=== PATIENT | male | born 2000 ===

== ENCOUNTER 2021-11-06 12:39 | Emergency (ER) | payer SELFPAY ==
[2021-11-06] MEDS ORDERED: TETANUS,DIPH,PERTUSS(ACELL) VACCINE 0.5 ML SYRINGE IM ONE (13:29)
[2021-11-06] MEDS ORDERED: LIDOCAINE (1%) 10 MG/1 ML VIAL 20 ML MDV INFILTRATI ONE (13:29)
[2021-11-06] MEDS ORDERED: SODIUM CHLORIDE 0.9% IRR 500 ML BOTTLE IR ONE (13:29)
[2021-11-06] MEDS ORDERED: NEOMY 3.5 MG/BACIT 400 UNITS/POLY B 5000 UNITS/GM OINT PACKET TP ONE (13:29)
--- NOTE | 2021-11-06 13:29 | Event Note ---
ED Screening Note ED Screening Note: pt comes to ER with lacs to finger 1-4 of l hand he states he was cutting garlic he has large lacs to 4 fingers he dunked his hand in flour to stop bleeding so wound visualization limited in triage chair he also put 2 large rubber bands on his arm above elbow as a tourniquet to stop the bleeding Linda removed the rubber bands arm dusky but over a few minutes started to pink up radial and ulnar pulses intact Rin charge nurse aware of need for bed Discussed with Dr Luz This initial assessment/diagnostic orders/clinical plan/treatment(s) is/are subject to change based on patients health status, clinical progression and re- assessment by fellow clinical providers in the ED. Further treatment and workup at subsequent clinical providers discretion. Patient/guardian urged not to elope from the ED as their condition may be serious if not clinically assessed and managed. Initial orders include: xr tdap ancef wound care
[2021-11-06] MEDS ORDERED: HYDROcodone/ACETAMINOPHEN 5-325 MG TAB PO ONE (14:00)
--- NOTE | 2021-11-06 14:14 | XRay Report ---
LEFT HAND 3 VIEW(S) INDICATION / CLINICAL INFORMATION: lac to finger 1-4 ro fx COMPARISON: None available. FINDINGS: BONES / JOINT(S): No acute fracture or subluxation. No significant arthritis. SOFT TISSUES: Soft tissue irregularity/lacerations of the third through fifth digits. ADDITIONAL FINDINGS: None. Signer Name: Lobo Ballard MD Signed: 11/06/2021 2:10 PM Workstation Name: [id number]
--- NOTE | 2021-11-06 15:29 | Emergency Department Report ---
Upper Extremity - HPI Chief Complaint: Extremity Injury, Upper Stated Complaint: MANGLED HAND Time Seen by Provider: 11/06/21 13:29 Upper Extremity: Left Middle Finger, Left Ring Finger Occurred When: Today Mechanism: Other (laceratin ) Severity: moderate Symptoms: Yes Pain with Movement, Yes Laceration or Abrasion, No Deformity, No Limited Range of Movement, No Numbness, No Weakness, No Swelling, No Bruising/Ecchymosis Other History: pt comes to ER with lacs to finger 1-4 of left hand. He states he was cutting garlic. he has large lacs to 4 fingers. he dunked his hand in flour to stop bleeding. Wound visualization limited in triage chair. he also put 2 large rubber bands on his arm above elbow as a tourniquet to stop the bleeding. Linda removed the rubber bands. arm dusky but over a few minutes started to pink up. radial and ulnar pulses intact. Patient is right hand dominant ED Review of Systems ROS: Stated complaint: MANGLED HAND Other details as noted in HPI Comment: All other systems reviewed and negative Respiratory: denies: cough, shortness of breath, wheezing Cardiovascular: denies: chest pain, palpitations Skin: other (Laceration left 4th and 3rd finger ) Neurological: denies: headache, weakness, paresthesias Psychiatric: denies: anxiety, depression Hematological/Lymphatic: denies: easy bleeding, easy bruising ED Past Medical Hx - Medications Home Medications: Home Medications Medication Instructions Recorded Confirmed Last Taken Type Ibuprofen [Motrin] 600 mg PO Q8H PRN #30 tablet 11/06/21 Unknown Rx Upper Extremity Exam - Exam General: Vital signs noted. No distress. Alert and acting appropriately. Head and Torso: No HEENT Abnormality, No Neck Tenderness, No Chest/Lungs Abnormality, No Abdominal Tenderness, No Back Tenderness Shoulder Exam: Yes Normal Range of Motion in Shoulder, No Shoulder Tenderness, No Clavicle Tenderness, No Shoulder Deformity, No AC Joint Tenderness Arm Exam: No Arm/Humerus Tenderness, No Arm Deformity Elbow: Yes Normal Range of Motion in Elbow, No Elbow Tenderness, No Elbow Deform ity Forearm: No Forearm Tenderness, No Forearm Deformity, No Pain with Pronation, No Pain with Supination Wrist: Yes Normal ROM in Wrist, No Wrist Tenderness, No Wrist Deformity, No Snuffbox Tenderness, No Pain with Axial Thumb Compression Hand: Yes Digit Tenderness (distal aspect of left 3rd and 4th finger on plamer surface ), Yes Normal ROM in Digit(s), No Hand Tenderness, No Hand Deformity, No Digit(s) Deformity, No Tendon Dysfunction CMS Exam: Yes Broken Skin (Approximately 2 cm x 1 cm superficial avulsion type laceration noted to the distal left third finger, and a 1 cm x 1 cm superficial skin avulsion laceration noted to the left fourth finger. This appears to be mainly soft tissue involvement. No bony exposure or bony injury noted. Bleeding controlled with pressure. No nailbed or nail involvement.), Yes Normal Distal Pulses, Yes Normal Capillary Refill, Yes Normal Distal Sensation ED Course Vital Signs 11/06/21 13:27 Temperature 98.3 F Pulse Rate 114 H Respiratory 16 Rate Blood Pressure 140/84 O2 Sat by Pulse 98 Oximetry - Nerve Block Consent Obtained: verbal consent Time Out Performed: No Local Anesthetic Used: Lidocaine 1% Amount of anesthesia used: 6 Side: left Nerve Blocks: digital Procedure Successful: Yes Complications: none Patient Tolerated Procedure: well, no complications ED Medical Decision Making - Radiology Data Radiology results: report reviewed Patient: MERLENE HOLLINGSWORTH MR#: [id number] : 2000 Acct:[id number] Age/Sex: 20 / M ADM Date: 11/06/21 Loc: ED Attending Dr: Ordering Physician: RONY SHELBY Date of Service: 11/06/21 Procedure(s): XR hand 3+V LT Accession Number(s): [id number] cc: RONY SHELBY Fluoro Time In Minutes: LEFT HAND 3 VIEW(S) INDICATION / CLINICAL INFORMATION: lac to finger 1-4 ro fx COMPARISON: None available. FINDINGS: BONES / JOINT(S): No acute fracture or subluxation. No significant arthritis. SOFT TISSUES: Soft tissue irregularity/lacerations of the third through fifth digits. ADDITIONAL FINDINGS: None. Signer Name: Lobo Ballard MD Signed: 11/06/2021 2:10 PM Workstation Name: [id number] Transcribed By: SB Dictated By: LOBO BALLARD MD Electronically Authenticated By: LOBO BALLARD MD Signed Date/Time: 11/06/21 1410 DD/ 1409 TD/TT: - Medical Decision Making Patient with a superficial avulsion type laceration to the distal palmar surface of his third and fourth finger of his left hand. He has no exposed bone. No apparent tendon injury. He has full range of motion of his fingers. Nail and nailbed not involved. His left upper extremity is neurovascular intact. His wound edges not well approximated and unable to repair. X-ray shows no bony injury. Patient tetanus was updated. Discussed wound care with patient. Wet-to-dry dressing applied. Patient expressed understanding and agree with plan. Patient was stable at time of discharge. Critical care attestation.: If time is entered above; I have spent that time in minutes in the direct care of this critically ill patient, excluding procedure time. ED Disposition Clinical Impression: Laceration of finger Disposition: HOME / SELF CARE / HOMELESS Is pt being admited?: No Does the pt Need Aspirin: No Condition: Stable Instructions: Nonsutured Laceration Care Additional Instructions: Keep wound clean daily with soap and water. Dry well after each cleaning and apply neosporin and dressing. Do not use peroxide or alcohol to clean wound. Follow up with your PCP in 3-4 days for wound check. Return to ED if worse. Prescriptions: Ibuprofen [Motrin] 600 mg PO Q8H PRN #30 tablet PRN Reason: Pain Referrals: MILLA GONSALEZ MD [Staff Physician] - 3-5 Days Forms: Work/School Release Form(ED) Time of Disposition: 15:57 Print Language: FRENCH
[2021-11-06] MEDS ORDERED: ceFAZolin 1 GM VIAL IM ONE (16:10)
[2021-11-06 16:54] VITALS: BP 135/75
== END 2021-11-06 16:53 | disposition home or self-care (01) ==
LOC: EDBD → ED 12:39
DX: S61.219A Laceration without foreign body of unspecified finger without damage to nail, initial encounter (principal); X58.XXXA Exposure to other specified factors, initial encounter; Y93.89 Activity, other specified; Y92.89 Other specified places as the place of occurrence of the external cause; Y99.8 Other external cause status
CPT/HCPCS: 64450; 73130; 90471; 90715; 96372; 99283; J0690